=== PATIENT | female | born 1945 | race Caucasian/White ===

== ENCOUNTER → 2024-04-25 13:44 | Outpatient (REF) | payer MEDICARE, BC, SELFPAY | LOC: HWWDC 13:44 | PROVIDERS: ATTENDING PHYSICIAN Internal Medicine | DX: Z12.31 Encounter for screening mammogram for malignant neoplasm of breast (principal) | CPT/HCPCS: 77063; 77067 ==

== ENCOUNTER → 2025-07-21 10:53 | Outpatient (REF) | payer OTHER, SELFPAY | LOC: HWWDC 10:53 | PROVIDERS: ATTENDING PHYSICIAN Internal Medicine | DX: Z12.31 Encounter for screening mammogram for malignant neoplasm of breast (principal) | CPT/HCPCS: 77063; 77067 ==